=== PATIENT | male | born 2000 ===

== ENCOUNTER 2021-10-27 10:56 | Emergency (ER) | payer MEDICAID, SELFPAY ==
--- NOTE | ~2021-10-27 | XR_ITS ---
EXAMINATION: XR CHEST CLINICAL INFORMATION: Cough. COMPARISON: 11/08/2019 chest radiographs. TECHNIQUE: Frontal view of the chest was obtained. FINDINGS: No significant abnormality is noted involving the heart, lungs, mediastinum, bony thorax or soft tissues. XR/XR chest 1V IMPRESSION: No acute cardiopulmonary process.
[2021-10-27 11:21] VITALS: BP 133/70; PULSE 76; RESP 18; TEMP 36.5; O2SAT 98; BMI 44.4
[2021-10-27 12:01] LABS: COVID-19 Test Negative (Negative); IDNOW Serial# 08D9AD1C
[2021-10-27 12:18] LABS: IDNOW Serial# 08D9AD1C; Influenza A Negative (Negative); Influenza B2 Negative (Negative)
[2021-10-27 12:40] LABS: Strep A Nucleic Acid Negative (Negative)
--- NOTE | 2021-10-27 13:51 | ED_ITS ---
HPI - URI/Sore Throat General Chief Complaint: Upper Respiratory Symptoms Stated Complaint: Congestion/SOB Time Seen by Provider: 10/27/21 12:13 Source: patient Mode of arrival: ambulatory History of Present Illness HPI Narrative: 21-year-old male with no significant past medical history presenting to the ED complaining of nasal congestion, rhinorrhea, productive cough of green phlegm, fever T-max 103 degrees, myalgias/body aches and sore throat x3 days. Admits to mild SOB. Denies difficulty/inability to swallow, CP, pedal edema, recent travel, sick contacts. MD elicited complaint: fever, cough, sore throat, rhinorrhea and nasal congestion Onset (ago): day(s) Related Data Previous Rx's Medication Instructions Recorded amoxicillin 875 mg-potassium 1 tab PO BID 7 Days #14 tab 10/27/21 clavulanate 125 mg tablet Allergies Allergy/AdvReac Type Severity Reaction Status Date / Time No Known Allergies Allergy Verified 10/27/21 11:21 [No Known Allergies*] Review of Systems Review of Systems: Constitutional: +Fever, No Chills ENT/Mouth: No Ear Pain, + Nasal Congestion, No Sinus Pain, No Hoarseness, + sore throat, + Rhinorrhea, No Swallowing Difficulty Cardiovascular: No Chest Pain, +mild SOB Respiratory: + Cough, + Sputum, No Wheezing Gastrointestinal: No Nausea, No Vomiting, No Diarrhea, No Constipation, No Abdominal pain Genitourinary: No Dysuria, No Hematuria, No Flank Pain Musculoskeletal: No joint pain, + Myalgias, No Joint Swelling Skin: No Skin Lesions, No rash Neuro: No Weakness, No Numbness, No Paresthesias Yes all other systems are reviewed and are negative [facility] Past Medical History Attestation statement: The following information was validated with the patient. Social History Social History Advance Directives: No Advance Directives Information Provided: Yes Physical Exam Vital Signs: Vital Signs: Last Vital Signs Temp 97.7 F 10/27/21 11:21 Pulse 76 10/27/21 11:21 Resp 18 10/27/21 11:21 BP 133/70 10/27/21 11:21 Pulse Ox 98 10/27/21 11:21 BMI result Body Mass Index 44.4 Const: General: cooperative, healthy appearing and no acute distress Orientation/consciousness: patient oriented x3 Limitations: no limitations HEENT: Head: Yes normal to inspection and Yes atraumatic Ears: hearing grossly normal bilaterally, external ears normal, TM's normal bilaterally and mastoids normal General nose exam: Normal external nose present Face and sinus: Yes normal facial exam Throat: Yes uvula midline, No peritonsillar mass, Yes posterior oropharynx abnormal (Bilateral tonsillar swelling/erythema and exudates), No uvula laterally displaced and No uvular edema Eyes: General: appearance normal, both eyes and all related structures EOM: EOMs intact bilaterally Neck: Neck: Yes normal visual inspection, Yes no meningeal signs, Yes supple and No anterior neck swelling Resp: Effort & Inspection: normal respiratory effort and no respiratory distress Auscultation: clear to auscultation bilaterally, no rales, no rhonchi and no wheezes Cardio: Rate: regular rate Heart sounds: S1 normal heart sound present and S2 normal heart sound present Skin: Rashes: no rashes Wounds: no wounds Neuro: General: patient oriented x3, tone normal and no meningeal signs Gait exam (Neuro): Normal gait present Extrem: General: Yes normal to inspection Course Course Course Narrative: -COVID-19/influenza negative. Rapid strep negative. XR chest 1V IMPRESSION: No acute cardiopulmonary process. ? > results discussed with patient and mother at bedside including worrisome signs and symptoms MDM - URI/Sore Throat MDM Narrative Medical decision making narrative: 21-year-old male with no significant past medical history presenting to the ED complaining of nasal congestion, rhinorrhea, productive cough of green phlegm, fever T-max 103 degrees, myalgias/body aches and sore throat x3 days. On exam vital signs stable, NAD, nontoxic, lungs CTA, oropharynx consistent with strep pharyngitis. Rule out pneumonia Plan: Rapid strep, influenza, COVID-19 testing, CXR Differential Diagnosis Differential diagnosis: Likely upper respiratory infection, viral infection, bronchitis, influenza and pharyngitis Medical Records Attestation: I reviewed the patient's medical records. Lab Data Attestation: I reviewed the patient's lab results. Labs: Lab Results 10/27/21 10/27/21 10/27/21 Range/Units 11:26 11:26 12:25 COVID-19 ([facility]) Negative (Negative) COVID-19 Clin Com See Note Influenza Type A ([facility]) Negative (Negative) Influenza Type B ([facility]) Negative (Negative) Influenza A & B Note See Note S. pyogenes GrpA [facility] Negative (Negative) Discharge Plan Discharge Clinical Impression: Pharyngitis, Upper respiratory infection Patient Disposition: Home, Self-Care Instructions: Pharyngitis (ED), Viral Syndrome (ED) Additional Instructions: You tested negative for COVID-19, the flu, in her chest x-ray was unremarkable. Clinically it appeared to have strep throat. Augmentin is antibiotic please take as prescribed. If symptoms persist or worsen, develop fever unresolved medications, persistent or worsening cough, shortness of breath or chest pain please return to the ED Prescriptions: New amoxicillin-pot clavulanate 875-125 mg tablet 1 tab PO BID 7 Days Qty: 14 0RF Referrals: Physician,None [Primary Care Provider] - Stand Alone Forms: Work/School Release Interventions: ED Discharge Assessment Last Done: 10/27/21 14:16 Discharge Date/Time: 10/27/21 14:16
== END 2021-10-27 14:16 | disposition home or self-care (01) ==
PROVIDERS: Physician Assistant; Emergency Provider Emergency Medicine
DX: J06.9 Acute upper respiratory infection, unspecified (principal); R05.9 Cough, unspecified; R06.02 Shortness of breath; R50.9 Fever, unspecified; Z20.822 Contact with and (suspected) exposure to COVID-19
CPT/HCPCS: 36415; 71045; 87502; 87635; 87651; 99283

== ENCOUNTER 2023-01-01 07:26 | Outpatient (REF) | payer OTHER, MEDICAID, SELFPAY | END 2023-01-01 07:27 | disposition home or self-care (01) | LOC: HO.LAB 07:26 | PROVIDERS: PCP Physician Assistant; Visit Provider Physician Assistant | DX: Z13.1 Encounter for screening for diabetes mellitus (principal); E66.01 Morbid (severe) obesity due to excess calories; Z68.44 Body mass index [BMI] 60.0-69.9, adult; F32.9 Major depressive disorder, single episode, unspecified; F41.1 Generalized anxiety disorder; G47.00 Insomnia, unspecified | CPT/HCPCS: 36415; 80053; 84443; 85027 ==

== ENCOUNTER 2023-08-31 11:16 | Outpatient (AMB) | payer OTHER, SELFPAY ==
[2023-08-31 11:40] VITALS: BP 126/86; PULSE 92; RESP 16; O2SAT 97; BMI 62.9
--- NOTE | 2023-08-31 11:40 | MHC.PC.OV ---
Vital Signs 08/31/23 11:40 Height 5 ft 8 in Weight 414 lb 0.45 oz BMI 62.9 BP 126/86 Blood Pressure Location Lt brachial Position Sitting Respiration 16 Pulse 92 Pulse Source Pulse Oximeter Pulse Oximetry (%) 97 Oxygen Delivery Method Room Air Intake Visit Reasons: f/u weight and labs followup Marketing Services Vice President Required: No Accompanied by: Self / Same As Patient Allergies No Known Allergies [No Known Allergies*] Allergy (Verified 08/31/23 12:02) Medication List - Last Reconciled 08/31/23 by Mannie Richardson PA-C No Known Home Meds Tobacco use date assessed: 12/22/22 Dental Screening Dental Screen Date: 08/31/23 Did you have a dental visit in the last 12 months?: No Did you have a dental problem in the last 6 months where you did not have access to dental care?: No Was dental information given to patient?: Patient has dentist HPI f/u weight and labs followup HPI Details Patient is a 23-year-old male here today for a follow-up visit. Patient has past medical history significant for morbid obesity, asthma. Obesity: Unfortunately has gained 13 lb since last office visit. He does understand his weight is severely obese. He does admit to some dietary indiscretion. We did discuss possibly being referred to the weight management program though he declines at this time. He reports he has built a diet plan and will be joining a gym. Major depressive disorder: PHQ-9 score positive today in office for depression which has been existing condition for him. 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 1. Little interest or pleasure in doing things: more than half the days 2. Feeling down, depressed, or hopeless: nearly every day 3. Trouble falling or staying asleep, or sleeping too much: nearly every day 4. Feeling tired or having little energy: nearly every day 5. Poor appetite or overeating: nearly every day 6. Feeling bad about yourself - or that you are a failure or have let yourself or your family down: nearly every day 7. Trouble concentrating on things, such as reading the newspaper or watching television: more than half the days 8. Moving or speaking so slowly that other people could have noticed. Or the opposite - being so fidgety or restless that you have been moving around a lot more than usual: more than half the days 9. Thoughts that you would be better off or of hurting yourself in some way: several days Total score: 22 Depression Screening Interpretation: Positive Depression Screening Follow-up: Existing condition and Declines treatment Depression Screening Done: Yes 35549 - PHQ-9 Billing: Yes Source: Developed by Drs. Benji Newman, Devi Lopez, Max Andrade and colleagues, with an educational charissa from [place]. Thrive Questionnaire Date Thrive assessed: 08/31/23 I am a: Patient What is your living situation today?: I have a steady place to live Within the past 12 months, did the food you bought not last and you didn't have the money to get more?: Never true Within the past 12 months, did you worry whether your food would run out before you got money to buy more?: Never true Do you have trouble paying for medicines?: No Do you have trouble getting transportation to medical appointments?: No Do you have trouble paying your heating and electricity bill?: No Do you have trouble taking care of your child, family member or friend?: No Do you have trouble with day-to-day activities such as bathing, preparing meals, shopping, managing finances, etc.?: No Are you currently unemployed and looking for a job?: No Are you interested in more education?: No Please select the resources that you would like help with: None Currently or been in a relationship where the following occur: no concerns reported THRIVE Score: 0 AUDIT C Alcohol Use Questionnaire (AUDIT-C) 1. How often do you have a drink containing alcohol?: Never 3. How often do you have six or more drinks on one occasion?: Never Total Score: 0 DANITZA-7 AMB Questionnaire DANITZA-7 Date DANITZA - 7 assessed: 08/31/23 Feeling nervous, anxious, or on edge: 2 = More than half the days Not being able to stop or control worryin = Several days Worrying too much about different things: 2 = More than half the days Trouble relaxin = Several days Being so restless that it is hard to sit still: 0 = Not at all Becoming easily annoyed or irritable: 2 = More than half the days Feeling afraid as if something awful might happen: 0 = Not at all Total DANITZA-7 score (0-4 normal; 5-9 mild; 10-14 moderate; 15-21 severe): 8 Source: Developed by Drs. Benji Newman, Devi Lopez, Max Andrade and colleagues, with an educational charissa from [place]. DANITZA-7 Assessment Billing DANITZA-7 Assessment Tool: DANITZA-7 Assessment 12055 Review of Systems Const Denies headache(s) Eyes Denies loss of vision ENT Denies vertigo, Denies dizziness, Denies headache(s) and Denies sore throat Card Denies chest pain, Denies leg edema and Denies lightheadedness Resp Denies cough, Denies hemoptysis and Denies wheezing GI Denies abdominal pain, Denies melena, Denies constipation, Denies diarrhea and Denies vomiting Denies dysuria, Denies urinary frequency and Denies urinary urgency Musc Denies arthralgias, Denies joint swelling, Denies numbness and Denies tingling Neuro Denies Abnormal speech present, Denies behavioral changes, Denies vertigo, Denies dizziness, Denies headache(s), Denies loss of vision, Denies memory loss, Denies numbness and Denies tingling Psych Denies anxiety, Denies behavioral changes, Denies depression, Denies memory loss and Denies panic attacks Naresh/Lymph Denies easy bleeding and Denies easy bruising Aller/Immun Denies wheezing Physical exam (Primary Care) Vital Signs: Last Vital Signs Pulse 92 08/31/23 11:40 Resp 16 08/31/23 11:40 BP 126/86 08/31/23 11:40 Pulse Ox 97 08/31/23 11:40 Oxygen Delivery Method Room Air 08/31/23 11:40 BMI result Body Mass Index 62.9 BMI Assessment/Plan discussion: High Tobacco/Smoking Status: Tobacco use Status Tobacco use date assessed 12/22/22 08/31/23 11:41 Patient Tobacco Use Status Never used Tobacco 08/31/23 11:41 e-Cigarette/Vaping Use Never Used 08/31/23 11:41 PHQ-9: PHQ-9 Score PHQ-9: Total score 22 08/31/23 12:06 Depression Screening Interpretation: Positive Depression Screening Follow-up: Existing condition and Declines treatment Thrive Assessment: Date of Thrive Assessment Date Thrive assessed 08/31/23 08/31/23 11:57 Currently or been in a relationship where the following occur: no concerns reported Const Other: SEVERELY OBESE General: no acute distress, alert and awake Nutritional Appearance: well nourished Orientation/consciousness: oriented to person, oriented to place and oriented to time HENMT Ears: TM's normal bilaterally General nose exam: Normal nasal mucous membranes and turbinates present Eyes Conjunctivae: conjunctivae normal Sclerae: sclerae normal Pupils: Equal, round and reactive pupils present Neck Neck: Yes no lymphadenopathy and Yes no JVD Thyroid: Thyroid normal Carotids: no bruits Resp Effort & Inspection: normal respiratory effort and not tachypneic Auscultation: no crackles, no rales, no rhonchi and no wheezes Cardio Rate: regular rate Rhythm: regular rhythm Heart sounds: no murmurs and normal S1 and S2 GI Palpation (GI): Soft to palpation, nontender, no hepatomegaly and no splenomegaly Auscultation: normal bowel sounds Skin General skin exam: no rashes or lesions noted and dry skin Neuro General: oriented to person, oriented to place and oriented to time Cranial nerves: Yes Equal, round and reactive pupils present Speech: No Abnormal speech present Gait exam (Neuro): Normal gait present Motor exam (neuro): no tremor noted Extrem Right upper extremity: full ROM Left upper extremity: full ROM Right lower extremity: full ROM; no edema Left lower extremity: full ROM; no edema Psych Mental Status: mental status grossly normal Speech and movement: Normal speech and movement present Affect: normal affect Attitude: cooperative Thought process: Normal thought process present Assessment and Plan Assessment & Plan (1) MDD (major depressive disorder), recurrent episode, moderate: Code(s): F33.1 - Major depressive disorder, recurrent, moderate Plan: Patient's PHQ-9 score positive for depression which has been existing condition for him. He reports he will be trying to set up an appointment with the mental health therapist in near future. Not interested in starting any medication at this time. (2) Obesity: Code(s): E66.9 - Obesity, unspecified Qualifiers: Body mass index: BMI 60.0-69.9 Obesity classification: adult class 3 (BMI >= 40) Obesity type: due to excess calories Serious obesity comorbidity presence: without serious comorbidity Qualified Code(s): E66.01 - Morbid (severe) obesity due to excess calories; Z68.44 - Body mass index [BMI] 60.0-69.9, adult Plan: Unfortunately gained 13 lb since last office visit. He does understand he needs to watch his portion control. He was not willing to do weight management program. He reports he is motivated to start meal prepping and being more physically active. Did get up gym membership. Will follow-up with him in 6 months to see if any weight loss at that point will strongly consider weight management referral and weight loss medication. Orders: Orders Comprehensive [place]. Panel Fast Today Z13.1 - Encounter for screening for diabetes mellitus Coding Level of Care Code Est Pt Level 4 (14059) Diagnoses MDD (major depressive disorder), recurrent episode, moderate F33.1 Class 3 severe obesity due to excess calories without serious comorbidity with body mass index (BMI) of 60.0 to 69.9 in adult E66.01; Z68.44 Body mass index: BMI 60.0-69.9 Obesity classification: adult class 3 (BMI >= 40) Obesity type: due to excess calories Serious obesity comorbidity presence: without serious comorbidity Additional Codes DANITZA-7 Assessment Billing - DANITZA-7 Assessment Tool: DANITZA-7 Assessment 92512 ([id number])
== END 2023-08-31 12:14 | disposition home or self-care (01) ==
PROVIDERS: PCP Physician Assistant; Visit Provider Physician Assistant
DX: F33.1 Major depressive disorder, recurrent, moderate (principal); E66.01 Morbid (severe) obesity due to excess calories; Z68.44 Body mass index [BMI] 60.0-69.9, adult
CPT/HCPCS: 99214

== ENCOUNTER 2024-06-05 09:57 | Outpatient (AMB) | payer OTHER, SELFPAY ==
--- NOTE | 2024-06-05 10:20 | A.OFFPC_ITS ---
Vital Signs 06/05/24 10:31 Height 5 ft 8 in Weight 420 lb 6 oz BMI 63.9 BP 140/100 H Blood Pressure Location Rt brachial Position Sitting Pulse 107 H Pulse Source Pulse Oximeter Pulse Oximetry (%) 98 Oxygen Delivery Method Room Air Intake Visit Reasons: f/u weight and labs follow up Compliance Testing Analyst Required: No Accompanied by: Self / Same As Patient Allergies No Known Allergies [No Known Allergies*] Allergy (Verified 06/05/24 10:49) Medication List - Last Reconciled 06/05/24 by Mannie Richardson PA-C No Known Home Meds Tobacco use date assessed: 06/05/24 Dental Screening Dental Screen Date: 08/31/23 HPI f/u weight and labs follow up HPI Details Patient is a 24-year-old male here today for a follow-up visit. Patient has past medical history significant for morbid obesity, asthma. Obesity: Unfortunately has gained more weight since last office visit. He does understand his weight is severely obese. He does admit to some dietary indiscretion. 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 We did discuss possibly being referred to the weight management program though he declines at this time. He reports he has built a diet plan and will be joining a gym. PLAN: Willing to talk to with a dietitian about eating habits. He is concerned about seeing weight management program doing surgery. He is also willing to start a GLP 1 to help him with weight reduction. 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 Benji Newman, Devi Lopez, Max Andrade and colleagues, with an educational charissa from [employer]. Review of Systems Const Denies headache(s) Eyes Denies loss of vision ENT Denies vertigo, Denies dizziness, Denies headache(s) and Denies sore throat Card Denies chest pain, Denies leg edema and Denies lightheadedness Resp Denies cough, Denies hemoptysis and Denies wheezing GI Denies abdominal pain, Denies melena, Denies constipation, Denies diarrhea and Denies vomiting Denies dysuria, Denies urinary frequency and Denies urinary urgency Musc Denies arthralgias, Denies joint swelling, Denies numbness and Denies tingling Neuro Denies Abnormal speech present, Denies behavioral changes, Denies vertigo, Denies dizziness, Denies headache(s), Denies loss of vision, Denies memory loss, Denies numbness and Denies tingling Psych Denies anxiety, Denies behavioral changes, Denies depression, Denies memory loss and Denies panic attacks Naresh/Lymph Denies easy bleeding and Denies easy bruising Aller/Immun Denies wheezing Physical exam (Primary Care) Vital Signs: Last Vital Signs Pulse 107 H 06/05/24 10:31 BP 140/100 H 06/05/24 10:31 Pulse Ox 98 06/05/24 10:31 Oxygen Delivery Method Room Air 06/05/24 10:31 BMI result Body Mass Index 63.9 BMI Assessment/Plan discussion: High BMI High, discussed plan: lifestyle, weight reduction, dietary and physical activity Tobacco/Smoking Status: Tobacco use Status Tobacco use date assessed 06/05/24 06/05/24 10:31 Patient Tobacco Use Status Never used Tobacco 06/05/24 10:20 e-Cigarette/Vaping Use Never Used 06/05/24 10:20 Thrive Assessment: Date of Thrive Assessment Date Thrive assessed 08/31/23 06/05/24 10:20 Const General: healthy appearing, no acute distress, alert and awake Nutritional Appearance: well nourished Orientation/consciousness: oriented to person, oriented to place and oriented to time HENMT Ears: TM's normal bilaterally General nose exam: Normal nasal mucous membranes and turbinates present Eyes Conjunctivae: conjunctivae normal Sclerae: sclerae normal Pupils: Equal, round and reactive pupils present Neck Neck: Yes no lymphadenopathy and Yes no JVD Thyroid: Thyroid normal Carotids: no bruits Resp Effort & Inspection: normal respiratory effort and not tachypneic Auscultation: no crackles, no rales, no rhonchi and no wheezes Cardio Rate: regular rate Rhythm: regular rhythm Heart sounds: no murmurs and normal S1 and S2 GI Palpation (GI): Soft to palpation, nontender, no hepatomegaly and no splenomegaly Auscultation: normal bowel sounds Skin General skin exam: no rashes or lesions noted and dry skin Neuro General: oriented to person, oriented to place and oriented to time Cranial nerves: Yes Equal, round and reactive pupils present Speech: No Abnormal speech present Gait exam (Neuro): Normal gait present Motor exam (neuro): no tremor noted Extrem Right upper extremity: full ROM Left upper extremity: full ROM Right lower extremity: full ROM; no edema Left lower extremity: full ROM; no edema Psych Mental Status: mental status grossly normal Speech and movement: Normal speech and movement present Affect: normal affect Attitude: cooperative Thought process: Normal thought process present Office Procedures Flu Questionnaire Does the patient have a severe egg allergy?: No Immunizations Fluarix Triv [id number] (PF) 45 mcg (15 mcg x 3)/0.5 mL IM syringe Performing Provider: Mannie Richardson PA-C [facility] [place] Documented (not given) by: RAQUEL Neff on 06/05/24 10:38 Reason Not Given: Patient Refused Coding Level of Care Code Est Pt Level 3 (11962) Diagnoses Class 3 obesity E66.813 Assessment & Plan Assessment & Plan (1) Class 3 obesity: Code(s): E66.813 - Obesity, class 3 Category: Medical Plan: Patient does understand his BMI is over 60, unfortunately has gained weight since last office visit. He has not been to physically active as of late and reports some dietary indiscretion. He seems he is somewhat motivated at this moment to be better about his health. He is not interested in weight loss surgery at this time as he feels it is too risky. He is interested in starting GLP 1 to help lose weight as an alternative option. Orders: Orders Influenza [id number] Immunization 06/05/24 Z23 - Encounter for immunization Comprehensive [place]. Panel Fast 06/05/24 Z13.1 - Encounter for screening for diabetes mellitus Referrals Nutrition/Dietitian Referral E66.01 - Morbid (severe) obesity due to excess calories, Z68.44 - Body mass index [BMI] 60.0-69.9, adult Medications: New semaglutide (weight loss) ([facility]) administer weeks 1 through 4 of therapy 0.25 mg (0.5 mL) subcut QWEEK 2 mL 0RF 4 weeks E66.813 - Obesity, class 3
[2024-06-05 10:31] VITALS: BP 140/100; PULSE 107; O2SAT 98; BMI 63.9
== END 2024-06-05 11:07 | disposition home or self-care (01) ==
PROVIDERS: PCP Physician Assistant; Visit Provider Physician Assistant
DX: Z23 Encounter for immunization (principal)

== ENCOUNTER → 2024-06-05 09:57 | Outpatient (BNVA) | payer OTHER, SELFPAY | PROVIDERS: PCP Physician Assistant; Visit Provider Physician Assistant | DX: E66.813 Obesity, class 3 (principal); Z68.44 Body mass index [BMI] 60.0-69.9, adult; Z28.21 Immunization not carried out because of patient refusal | CPT/HCPCS: 90471 ==